=== PATIENT | male | born 1965 | race Caucasian/White ===

== ENCOUNTER 2017-01-22 13:50 | Inpatient (IN) | payer SELFPAY ==
[~2017-01-22] VITALS: Ht 172.7 cm; Wt 59.0 kg
--- NOTE | 2017-01-22 14:26 | Emergency Room Report ---
History of Present Illness General Chief Complaint: Flu Like Symptoms Source: Patient Present Illness HPI 51-year-old male with no sig pmhx p/w myalgias, nausea, vomiting, diarrhea since this morning Patient states that symptoms started after last night he drank a lot of alcohol , and now the swelling feeling very miserable Pt reports n/v, 4 episodes of nbnb vomiting, 4 episodes of watery non bloody diarrhea No fever,+ chills No recent travel no recent antibiotic use Allergies: Coded Allergies: PENICILLINS (Verified Allergy, Intermediate, 01/22/17) Patient History Past Medical History: see triage record Past Surgical History: none Pertinent Family History: none Reviewed Nursing Documentation: PMH: Agreed, PSxH: Agreed Nursing Documentation-PMH Past Medical History: No Stated History Review of Systems All Other Systems: negative except mentioned in HPI Physical Exam Vital Signs Date Time Temp Pulse Resp B/P (MAP) Pulse Ox O2 Delivery O2 Flow Rate FiO2 01/22/17 13:50 97.9 86 18 130/80 98 Room Air Sp02 EP Interpretation: reviewed, normal General Appearance: alert, GCS 15, non-toxic, mild distress, other - appears tired Head: normocephalic, atraumatic Eyes: bilateral eye normal inspection, bilateral eye PERRL, bilateral eye EOMI ENT: normal ENT inspection, normal pharynx, normal voice, moist mucus membranes Neck: normal inspection, full range of motion, supple Respiratory: normal inspection, lungs clear, normal breath sounds, no respiratory distress, no retraction, no wheezing, speaking full sentences, chest symmetrical Cardiovascular #1: normal inspection, regular rate, rhythm, normal capillary refill Cardiovascular #2: 2+ radial (R), 2+ radial (L) Gastrointestinal: normal inspection, non tender, soft, non-distended, no guarding Genitourinary: no CVA tenderness Musculoskeletal: normal inspection, back normal, normal range of motion, non- tender Neurologic: normal inspection, alert, oriented x3, responsive, motor strength/ tone normal, sensory intact, normal gait, speech normal Psychiatric: normal inspection, judgement/insight normal, memory normal Skin: normal inspection, normal color, no rash, warm/dry, well hydrated, normal turgor Medical Decision Making Diagnostic Impression: Primary Impression: Nausea vomiting and diarrhea Additional Impressions: Dehydration Leukocytosis ER Course 51 -year-old male, nausea vomiting, myalgias, one-day Differential Diagnosis: Dehydration, hypovolemia, alcohol induced, Gastritis, gastroenteritis, UTI/pyelo Abdomen is soft nontender at this time, will not perform any imaging Plan: Basic labs, ua Pepcid, Zofran, pain control, IVF ER course: Patient has remained stable during ED stay. HD stable no furhter episodes of vomiting but still cannot tolerate PO states he lives alone, does not feel well enought o go home ambulates but feels dizzy/week will admit to med surg Disposition: Admitted patient to med surg D/W Dr Michele who has accepted patient for admission Please note that this Emergency Department Report was dictated using Gradeablerecycling director technology software, occasionally this can lead to erroneous entry secondary to interpretation by the dictation equipment Chest X-ray CXR: Ordered: Yes 1 view Indication: Cough EP interpretation: Yes Interpretation: No consolidation, no effusion, no PTX, no acute cardiopulmonary disease Impression: No acute disease Electronically signed by Royer Kelly MD Laboratory Tests Test 01/22/17 14:25 01/22/17 17:40 White Blood Count 19.5 K/UL (4.8-10.8) H 16.5 K/UL (4.8-10.8) H Red Blood Count 5.53 M/UL (4.70-6.10) 4.00 M/UL (4.70-6.10) L Hemoglobin 17.4 G/DL (14.2-18.0) 13.2 G/DL (14.2-18.0) L Hematocrit 53.4 % (42.0-52.0) H 38.3 % (42.0-52.0) L Mean Corpuscular Volume 97 FL (80-99) 96 FL (80-99) Mean Corpuscular Hemoglobin 31.4 PG (27.0-31.0) H 33.1 PG (27.0-31.0) H Mean Corpuscular Hemoglobin Concent 32.5 G/DL (32.0-36.0) 34.5 G/DL (32.0-36.0) Red Cell Distribution Width 10.9 % (11.6-14.8) L 10.8 % (11.6-14.8) L Platelet Count 288 K/UL (150-450) 257 K/UL (150-450) Mean Platelet Volume 6.6 FL (6.5-10.1) 6.4 FL (6.5-10.1) L Neutrophils (%) (Auto) % (45.0-75.0) % (45.0-75.0) Lymphocytes (%) (Auto) % (20.0-45.0) % (20.0-45.0) Monocytes (%) (Auto) % (1.0-10.0) % (1.0-10.0) Eosinophils (%) (Auto) % (0.0-3.0) % (0.0-3.0) Basophils (%) (Auto) % (0.0-2.0) % (0.0-2.0) Differential Total Cells Counted 100 Neutrophils % (Manual) 84 % (45-75) H Pending Lymphocytes % (Manual) 1 % (20-45) L Pending Monocytes % (Manual) 3 % (1-10) Eosinophils % (Manual) 0 % (0-3) Basophils % (Manual) 0 % (0-2) Band Neutrophils 12 % (0-8) H Platelet Estimate Adequate Pending Platelet Morphology Normal Pending Red Blood Cell Morphology Normal Sodium Level 138 MMOL/L (136-145) Potassium Level 4.1 MMOL/L (3.5-5.1) Chloride Level 102 MMOL/L (98-107) Carbon Dioxide Level 26 MMOL/L (21-32) Anion Gap 11 mmol/L (5-15) Blood Urea Nitrogen 28 mg/dL (7-18) H Creatinine 1.1 MG/DL (0.55-1.30) Estimate Glomerular Filtration Rate > 60 mL/min (>60) Glucose Level 151 MG/DL (74-106) H Calcium Level 9.7 MG/DL (8.5-10.1) Total Bilirubin 1.5 MG/DL (0.2-1.0) H Direct Bilirubin 0.2 MG/DL (0.0-0.3) Aspartate Amino Transferase (AST) 17 U/L (15-37) Alanine Aminotransferase (ALT) 26 U/L (12-78) Alkaline Phosphatase 80 U/L (46-116) Total Protein 9.2 G/DL (6.4-8.2) H Albumin 4.5 G/DL (3.4-5.0) Globulin 4.7 g/dL Albumin/Globulin Ratio 1.0 (1.0-2.7) Lipase 133 U/L (73-393) Serum Alcohol < 3 mg/dL Urine Color Pale yellow Urine Appearance Clear Urine pH 5 (4.5-8.0) Urine Specific [place] 1.015 (1.005-1.035) Urine Protein Negative (NEGATIVE) Urine Glucose (UA) Negative (NEGATIVE) Urine Ketones Negative (NEGATIVE) Urine Occult Blood Negative (NEGATIVE) Urine Nitrite Negative (NEGATIVE) Urine Bilirubin Negative (NEGATIVE) Urine Urobilinogen Normal MG/DL (0.0-1.0) Urine Leukocyte Esterase Negative (NEGATIVE) Urine Opiates Screen Negative (NEGATIVE) Urine Barbiturates Screen Negative (NEGATIVE) Phencyclidine (PCP) Screen Negative (NEGATIVE) Urine Amphetamines Screen Negative (NEGATIVE) Urine Benzodiazepines Screen Negative (NEGATIVE) Urine Cocaine Screen Positive (NEGATIVE) H Urine Marijuana (THC) Screen Negative (NEGATIVE) Last Vital Signs Date Time Temp Pulse Resp B/P (MAP) Pulse Ox O2 Delivery O2 Flow Rate FiO2 01/22/17 13:50 97.9 86 18 130/80 98 Room Air Disposition: ADMITTED INPATIENT Condition: Serious Scripts No Active Prescriptions or Reported Meds Royer Kelly M.D. Jan 22, 2017 14:26
[2017-01-22] MEDS ORDERED: Tubing IV Cassette IV ONE (14:40)
[2017-01-22 14:42] LABS: MEAN CORPUSCULAR HEMOGLOBIN 31.4 PG (27.0-31.0); MEAN CORPUSCULAR HGB CONC 32.5 G/DL (32.0-36.0); MEAN CORPUSCULAR VOLUME 97 FL (80-99); MEAN PLATELET VOLUME 6.6 FL (6.5-10.1); PLATELET COUNT 288 K/UL (150-450); RED BLOOD COUNT 5.53 M/UL (4.70-6.10); RED CELL DISTRIBUTION WIDTH 10.9 % (11.6-14.8); WHITE BLOOD COUNT 19.5 K/UL (4.8-10.8)
[2017-01-22 14:52] LABS: ANION GAP 11 mmol/L (5-15); CALCIUM 9.7 MG/DL (8.5-10.1); CARBON DIOXIDE 26 MMOL/L (21-32); CHLORIDE 102 MMOL/L (98-107); CREATININE 1.1 MG/DL (0.55-1.30); GLOMERULAR FILTRATION RATE > 60 mL/min (>60); POTASSIUM 4.1 MMOL/L (3.5-5.1); SODIUM 138 MMOL/L (136-145)
[2017-01-22 14:56] LABS: BAND NEUTROPHILS % (MANUAL) 12 % (0-8); BASOPHILS % (MANUAL) 0 % (0-2); EOSINOPHILS % (MANUAL) 0 % (0-3); LYMPHOCYTES % (MANUAL) 1 % (20-45); NEUTROPHILS % (MANUAL) 84 % (45-75); PLATELET ESTIMATE ADEQUATE; PLATELET MORPHOLOGY NORMAL; TOTAL CELLS COUNTED 100
[2017-01-22 15:03] LABS: ALANINE AMINOTRANSFERASE 26 U/L (12-78); ASPARTATE AMINO TRANSFERASE 17 U/L (15-37); LIPASE 133 U/L (73-393); TOTAL PROTEIN 9.2 G/DL (6.4-8.2)
[2017-01-22 15:08] LABS: ALCOHOL < 3 mg/dL; BILIRUBIN,DIRECT 0.2 MG/DL (0.0-0.3)
[2017-01-22] MEDS ORDERED: Acetaminophen 500mg (ES) tab ORAL ONE (16:15)
--- NOTE | 2017-01-22 16:21 | Diagnostic Imaging Report ---
Indication: Dyspnea Comparison: None A single view chest radiograph was obtained. Findings: Cardiomediastinal appearance is within normal limits for age. Pulmonary vascularity is appropriate. The diaphragmatic contour is smooth and costophrenic angles are sharp. No pleural effusions are identified. The bones are unremarkable. Impression: No acute findings
[2017-01-22 17:15] VITALS: BP 101/58
[2017-01-22 18:00] LABS: APPEARANCE,URINE CLEAR; KETONES,URINE NEGATIVE (NEGATIVE); LEUKOCYTE ESTERASE ,URINE NEGATIVE (NEGATIVE); NITRITE,URINE NEGATIVE (NEGATIVE); PH,URINE 5 (4.5-8.0); PROTEIN,URINE NEGATIVE (NEGATIVE); UROBILINOGEN,URINE NORMAL MG/DL (0.0-1.0)
[2017-01-22 19:17] LABS: MEAN CORPUSCULAR HEMOGLOBIN 33.1 PG (27.0-31.0); MEAN CORPUSCULAR HGB CONC 34.5 G/DL (32.0-36.0); MEAN CORPUSCULAR VOLUME 96 FL (80-99); MEAN PLATELET VOLUME 6.4 FL (6.5-10.1); PLATELET COUNT 257 K/UL (150-450); RED CELL DISTRIBUTION WIDTH 10.8 % (11.6-14.8); WHITE BLOOD COUNT 16.5 K/UL (4.8-10.8)
[2017-01-22 21:12] LABS: BAND NEUTROPHILS % (MANUAL) 2 % (0-8); LYMPHOCYTES % (MANUAL) 3 % (20-45); NEUTROPHILS % (MANUAL) 93 % (45-75); TOTAL CELLS COUNTED 100
[2017-01-22 21:13] LABS: BASOPHILS % (MANUAL) 0 % (0-2); EOSINOPHILS % (MANUAL) 0 % (0-3); PLATELET ESTIMATE ADEQUATE; PLATELET MORPHOLOGY NORMAL
[2017-01-22] MEDS ORDERED: Morphine Sulfate 4mg/ml Inj IVP PRN (22:00)
[2017-01-22] MEDS ORDERED: Zolpidem 5mg tab ORAL PRN (22:00)
[2017-01-22] MEDS ORDERED: Milk of Magnesia 30ml Ud ORAL PRN (22:00)
[2017-01-22] MEDS ORDERED: cefTRIAXone 1 GM in D5W 55 ML IVPB ONE (22:45)
[2017-01-22 23:22] VITALS: BP 110/66
[2017-01-23] VITALS (7 sets, daily range): BP systolic 91–118; BP diastolic 54–71
[2017-01-23] MEDS: Pantoprazole Inj IV SCH (08:39)
[2017-01-23 08:55] LABS: BASOPHILS % (AUTO) 0.5 % (0.0-2.0); EOSINOPHILS % (AUTO) 0.9 % (0.0-3.0); LYMPHOCYTES % (AUTO) 15.5 % (20.0-45.0); MEAN CORPUSCULAR HEMOGLOBIN 31.8 PG (27.0-31.0); MEAN CORPUSCULAR HGB CONC 32.6 G/DL (32.0-36.0); MEAN CORPUSCULAR VOLUME 97 FL (80-99); MEAN PLATELET VOLUME 6.8 FL (6.5-10.1); NEUTROPHILS % (AUTO) 77.2 % (45.0-75.0); PLATELET COUNT 229 K/UL (150-450); RED BLOOD COUNT 4.06 M/UL (4.70-6.10); RED CELL DISTRIBUTION WIDTH 11.2 % (11.6-14.8); WHITE BLOOD COUNT 5.1 K/UL (4.8-10.8)
[2017-01-23 09:05] LABS: ALANINE AMINOTRANSFERASE 18 U/L (12-78); ALBUMIN/GLOBULIN RATIO 0.9 (1.0-2.7); ANION GAP 5 mmol/L (5-15); ASPARTATE AMINO TRANSFERASE 13 U/L (15-37); CALCIUM 7.8 MG/DL (8.5-10.1); CARBON DIOXIDE 27 MMOL/L (21-32); CHLORIDE 109 MMOL/L (98-107); GLOMERULAR FILTRATION RATE > 60 mL/min (>60); POTASSIUM 3.9 MMOL/L (3.5-5.1); SODIUM 141 MMOL/L (136-145); TOTAL PROTEIN 6.1 G/DL (6.4-8.2)
--- NOTE | 2017-01-23 09:29 | History & Physical ---
History and Physical History & Physicial HP dictated # [id number] LUCY CASILLAS Jan 23, 2017 09:29
--- NOTE | 2017-01-23 20:45 | History and Physical Report ---
DATE OF ADMISSION: 01/22/2017 CHIEF COMPLAINT: Dizziness, nausea, and vomiting. HISTORY OF PRESENT ILLNESS: This is a 51-year-old white male, who had four shots of Mark Vigil on Sunday night. He also took some cocaine and he went to sleep around 3 o'clock and later he woke up with severe nausea and vomiting and unrelenting diarrhea. The patient had dizziness as well. The patient was brought in by 911 and was admitted. PAST MEDICAL HISTORY: Noncontributory. No history of diabetes or hypertension. No history of GI issues in the past, although the patient had one episode of admission for abdominal pain. ALLERGIES: Penicillin. SOCIAL HISTORY: The patient has history of smoking. He drinks alcohol occasionally. REVIEW OF SYSTEMS: As above. PHYSICAL EXAMINATION: GENERAL: The patient is a 51-year-old male, in no acute distress. VITAL SIGNS: Blood pressure is 100/62, pulse 78, temperature 97.8 degrees, and respirations 18. HEENT: Sandy conjunctivae. Anicteric sclerae. NECK: Supple. LUNGS: Clear to auscultation. HEART: S1 and S2 without murmurs or rubs. ABDOMEN: Soft and nontender. EXTREMITIES: No cyanosis or edema. LABORATORY AND DIAGNOSTIC FINDINGS: Initial WBC was 19,500, today WBC is down to 5100; hematocrit is 39.6; hemoglobin is 12.9; and platelets are 229,000. Chemistry panel shows serum sodium 141, potassium 3.9, chloride 109, BUN 20, creatinine 1, and glucose 109. Calcium is 7.8. Albumin is 2.9. Chest x-ray was negative. ASSESSMENT: This is a 51-year-old white male, who was admitted with nausea, vomiting, and diarrhea. It may be as a result of alcohol consumption and the acute gastritis; however, the patient could have acute viral gastroenteritis as well. He had also leukocytosis. Again, it is not clear if it is a bacterial infection. Since there was a rapid drop, it may be stress-induced. PLAN: The patient will be on liquid diet, antiemetics, and IV fluids. An abdominal ultrasound will be done. Further adjustment will be made in the patient's regimen. Duane Michele M.D. DR: SASKIA JOB#: [id number] CC: ROYAL
[2017-01-24 00:20] VITALS: BP 121/68
[2017-01-24 04:46] VITALS: BP 111/73
[2017-01-24 08:21] VITALS: BP 122/81
[2017-01-24] MEDS: Pantoprazole Inj IV SCH (08:53)
--- NOTE | 2017-01-24 11:29 | Diagnostic Imaging Report ---
Indication: Reason For Exam: VOMITING Technique: Pressley-scale and duplex images of the upper abdomen were obtained Comparison: none Findings: Gallbladder is unremarkable, without stones, wall thickening, nor pericholecystic fluid. Sonographic Benjamin's sign is negative. Common bile duct measures for mm in diameter. No intrahepatic biliary ductal dilatation. Liver demonstrates normal echogenicity, no focal abnormality. Portal vein and hepatic veins are patent. Pancreas is unremarkable. Spleen is unremarkable. Left kidney measures 12 cm in length. Right kidney measures 11.7 cm length. Both kidneys demonstrate normal echogenicity. There is no hydronephrosis. A 1 cm cyst is seen in the interpolar region of the left kidney there are questionably small renal calcifications bilaterally. 7 mm cyst is seen in the lower pole of the right kidney . Non-aneurysmal abdominal aorta . Impression: Possible nonobstructive bilateral intrarenal calculi Incidental findings small bilateral renal cysts No other significant abnormality. Negative for gallstones or dilated ducts
[2017-01-24 12:00] VITALS: BP 127/82
--- NOTE | 2017-01-24 12:10 | General Progress Note ---
Assessment/Plan Problem List: (1) Acute gastroenteritis ICD Codes: K52.9 - Noninfective gastroenteritis and colitis, unspecified SNOMED: 34570287 (2) Leukocytosis ICD Codes: D72.829 - Elevated white blood cell count, unspecified SNOMED: 056559186, 947597409 (3) Nausea vomiting and diarrhea ICD Codes: R11.2 - Nausea with vomiting, unspecified; R19.7 - Diarrhea, unspecified SNOMED: 4291205 (4) Dehydration ICD Codes: E86.0 - Dehydration SNOMED: 45766781 Assessment/Plan IVF advance diet DC in AM if stable Subjective Allergies: Coded Allergies: PENICILLINS (Verified Allergy, Intermediate, 01/22/17) Subjective feels better Objective Last 24 Hour Vital Signs Date Time Temp Pulse Resp B/P (MAP) Pulse Ox O2 Delivery O2 Flow Rate FiO2 01/24/17 12:00 98.6 83 20 127/82 97 01/24/17 08:21 98.8 78 20 122/81 95 01/24/17 08:00 Room Air 01/24/17 06:00 Room Air 01/24/17 04:46 98.1 85 19 111/73 97 01/24/17 00:20 98.2 71 18 121/68 97 01/23/17 21:06 98.3 77 19 118/71 98 01/23/17 16:00 97.8 70 20 110/62 99 Room Air Height (Feet): 5 Height (Inches): 8.00 Weight (Pounds): 130 Cardiovascular: normal rate Respiratory/Chest: lungs clear Abdomen: soft LUCY CASILLAS Jan 24, 2017 12:10
[2017-01-24 20:00] VITALS: BP 110/70
[2017-01-25] VITALS: BP 106/66
[2017-01-25 04:00] VITALS: BP 107/77
[2017-01-25 08:00] VITALS: BP 116/70
[2017-01-25] MEDS: Pantoprazole Inj IV SCH (08:38)
[2017-01-25 12:00] VITALS: BP 113/79
[2017-01-25 16:00] VITALS: BP 115/57
--- NOTE | 2017-01-26 08:19 | Discharge Summary ---
Discharge Summary Hospital Course Date of Admission Jan 22, 2017 at 19:23 Date of Discharge Jan 25, 2017 at 19:00 Admitting Diagnosis dehydration/inability to tolerate po HPI Rocco Lopez is a 51 year old male who was admitted on Jan 22, 2017 at 19:23 for Dehydration Inability To Tolerate Po Hospital Course [id number] Discharge Discharge Disposition Patient was discharged to Home (01) Discharge Diagnoses: Terri Sauceda NP Jan 26, 2017 08:19
--- NOTE | 2017-01-26 23:30 | Discharge Summary 2 SIG ---
DATE OF ADMISSION: 01/22/2017 DATE OF DISCHARGE: 01/25/2017 BRIEF HOSPITAL COURSE: The patient is a 51-year-old white male, who took Mark Vigil and took cocaine, went to sleep. He then woke up with severe nausea and vomiting and unrelenting diarrhea. He had dizziness. He was then brought in by 911 to emergency room and on evaluation, the patient was admitted for nausea, vomiting, and diarrhea as a result of alcohol consumption and acute gastritis as well as possible viral gastroenteritis. There was leukocytosis, WBC was 19.5. He was placed initially on liquid diet and was given IV hydration and antiemetics. Abdominal ultrasound done showed positive nonobstructing bilateral intrarenal calculi. However, no other significant abnormality. Negative for gallstones or dilated ducts. Social service was called in. Diet was advanced. He was tolerating diet. He was then eventually discharged home. FINAL DIAGNOSES: 1. Acute gastroenteritis. 2. Leukocytosis. 3. Nausea, vomiting, and diarrhea. 4. Dehydration. 5. Substance abuse. DISPOSITION: The patient was discharged home. DISCHARGE INSTRUCTIONS: The patient to follow up with outpatient MD. Duane Michele M.D. I have been assigned to dictate discharge summary on this account and I was not involved in the patient's management. Terri Sauceda N.P. DR: Julio JOB#: [id number] CC: ROYAL
== END 2017-01-25 19:00 | disposition home or self-care (01) | DRG 641 ==
LOC: EDBD 13:50 → EMR 14:30 → 3E 19:23 → EDBEDREQ 20:40
DX: E86.0 Dehydration (principal); K52.9 Noninfective gastroenteritis and colitis, unspecified; N20.0 Calculus of kidney; Z88.0 Allergy status to penicillin; Z87.891 Personal history of nicotine dependence
CPT/HCPCS: 36415; 71010; 76700; 80053; 80307; 80329; 81003; 82248; 83690; 85007; 85025; 87081; 99285; J2405

== ENCOUNTER 2017-02-02 17:41 | Emergency (ER) | payer SELFPAY ==
[~2017-02-02] VITALS: Ht 177.8 cm; Wt 77.1 kg
--- NOTE | 2017-02-02 19:05 | Emergency Room Report ---
History of Present Illness General Chief Complaint: Flu Like Symptoms Present Illness HPI 51-year-old male presents to the emergency department complaining of cough, body aches, chills and subjective fevers x2 days. Patient states that he was diagnosed with viral gastroenteritis earlier this month. Patient denies nausea , vomiting, diarrhea with his current presentation. Patient reports multiple ill contacts in is very descriptive in detailing poor living conditions where he is exposed to feces. reports that he does not know if he is UTD with flu vaccine. otherwise UTD with vaccinations. Patient states that he has taken Tylenol approximately 20 minutes ago. He denies rashes, neck pain, neck stiffness or photophobia. Patient denies drug use. denies SOB or dyspnea. Denies CP, Palpitations, LOC, AMS, dizziness, Changes in Vision, Sensation, paresthesias, or a sudden severe headache. Pt reports that he has not followed up with PCP since last ED visit. Allergies: Coded Allergies: PENICILLINS (Verified Allergy, Intermediate, 01/22/17) Patient History Past Medical History: see triage record Past Surgical History: none Pertinent Family History: none Reviewed Nursing Documentation: PMH: Agreed, PSxH: Agreed Nursing Documentation-PMH Hx Cardiac Problems: No Review of Systems All Other Systems: negative except mentioned in HPI Physical Exam Vital Signs Date Time Temp Pulse Resp B/P (MAP) Pulse Ox O2 Delivery O2 Flow Rate FiO2 02/02/17 17:42 97.5 110 20 138/82 99 Room Air Sp02 EP Interpretation: reviewed, normal General Appearance: no apparent distress, alert, GCS 15, non-toxic Head: normocephalic, atraumatic Eyes: bilateral eye normal inspection, bilateral eye PERRL ENT: hearing grossly normal, normal pharynx, no angioedema, normal voice, TMs + canals normal, uvula midline Neck: full range of motion, no meningismus, no bony tend, supple/symm/no masses Respiratory: lungs clear, normal breath sounds, no wheezing, speaking full sentences Cardiovascular #1: regular rate, rhythm, tachycardia Gastrointestinal: non tender, soft Rectal: deferred Musculoskeletal: back normal, gait/station normal, normal range of motion, non- tender Neurologic: alert, oriented x3, responsive, motor strength/tone normal, sensory intact, normal gait, speech normal Psychiatric: anxious Skin: normal color, no rash, warm/dry, well hydrated Lymphatic: no adenopathy Medical Decision Making PA Attestation Dr. Toscano is my supervising Physician whom patient management has been discussed with. Diagnostic Impression: Primary Impression: Viral syndrome Additional Impression: Upper respiratory infection, viral ER Course 51-year-old male presents to the emergency department complaining of cough, body aches, chills and subjective fevers x2 days. Patient states that he was diagnosed with viral gastroenteritis earlier this month. Patient denies nausea , vomiting, diarrhea with his current presentation. Patient reports multiple ill contacts in is very descriptive in detailing poor living conditions where he is exposed to feces. reports that he does not know if he is UTD with flu vaccine. otherwise UTD with vaccinations. Patient states that he has taken Tylenol approximately 20 minutes ago. He denies rashes, neck pain, neck stiffness or photophobia. Patient denies drug use. denies SOB or dyspnea. Denies CP, Palpitations, LOC, AMS, dizziness, Changes in Vision, Sensation, paresthesias, or a sudden severe headache. Pt reports that he has not followed up with PCP since last ED visit. Ddx considered but are not limited to URI, pneumonia, PE, strep pharyngitis, meningitis. Vital signs: tachycardic at 110 bpm, Pt. is afebrile, the remaining VS are WNL, He is nontoxic in appearance and in no acute distress. H&PE are most consistent with URI- no meningeal signs, no evidence of bacterial infection at this time. suspect drug use due to pt. anxious demeanor, overly descriptive verbal responses, and tachycardia - I reviewed this patient's previous visit earlier this month and UDS was positive for cocaine. ORDERS: none required at this time, the diagnosis is clinical ED INTERVENTIONS: None required at this time. --PT. EDUCATION: Discussed antibiotic resistance with inappropriate prescribing of antibiotics for viral illnesses. Discussed signs and symptoms to indicate viral illness versus bacterial illness. DISCHARGE: At this time pt. is stable for d/c to home. Will provide printed patient care instructions, and any necessary prescriptions. Care plan and follow up instructions have been discussed with the patient prior to discharge. Last Vital Signs Date Time Temp Pulse Resp B/P (MAP) Pulse Ox O2 Delivery O2 Flow Rate FiO2 02/02/17 17:42 97.5 110 20 138/82 99 Room Air Disposition: HOME, SELF-CARE Condition: Stable Scripts Acetaminophen* (TYLENOL EXTRA STRENGTH*) 500 Mg Tablet 500 MG ORAL Q6H, #20 TAB 0 Refills Prov: Marlene Rosen 02/02/17 Oseltamivir Phosphate (Tamiflu) 75 Mg Capsule 75 MG ORAL TWICE A DAY for 5 Days, #10 CAP Prov: Marlene Rosen 02/02/17 Codeine/Promethazine Hcl* (PROMETHAZINE-CODEINE SYRUP*) 118 Ml Syrup 5 ML ORAL Q6H Y for For Cough, #118 ML 0 Refills Prov: Marlene Rosen 02/02/17 Patient Instructions: Upper Respiratory Infection, Adult, [id number] Additional Instructions: Take medications as directed. Follow up with a Primary Care Provider in 3-5 days, even if your symptoms have resolved. --Please review list of primary care clinics, if you do not already have a primary care provider Do not drink alcohol, drive, or operate heavy machinery while taking Cough Syrup as this may cause drowsiness. Return sooner to ED if new symptoms occur, or current symptoms become worse. - Please note that this Emergency Department Report was dictated using Knovulcan crewmember technology software, occasionally this can lead to erroneous entry secondary to interpretation by the dictation equipment. Marlene Rosen Feb 02, 2017 19:05
[2017-02-02] MEDS ORDERED: PROMETHAZINE-C118 M1 ORAL (19:06)
[2017-02-02] MEDS ORDERED: TYLENOL EXTRA500 MG ORAL (19:06)
[2017-02-02] MEDS ORDERED: TAMIFLU75 MG ORAL (19:06)
[2017-02-02 19:50] VITALS: BP 138/82
== END 2017-02-02 19:50 | disposition home or self-care (01) ==
LOC: EDBD 17:41 → EMR 18:30
DX: B34.9 Viral infection, unspecified (principal); J06.9 Acute upper respiratory infection, unspecified; Z88.0 Allergy status to penicillin
CPT/HCPCS: 99284

== ENCOUNTER 2017-08-27 21:08 | Emergency (ER) | payer MEDICAID ==
[~2017-08-27] VITALS: Ht 175.3 cm; Wt 76.2 kg
[~2017-08-27 21:08] MED LIST: PROMETHAZINE-C118 M1 ORAL; TAMIFLU75 MG ORAL; TYLENOL EXTRA500 MG ORAL
[2017-08-27] MEDS ORDERED: NKM (21:14)
[2017-08-27 21:15] VITALS: BP 110/73
[2017-08-27] MEDS ORDERED: PREDNISONE20 MG ORAL (21:26)
[2017-08-27] MEDS ORDERED: PERMETHRIN60 GM TOPIC (21:26)
[2017-08-27] MEDS ORDERED: CEPHALEXIN500 MG ORAL (21:26)
--- NOTE | 2017-08-27 21:31 | Emergency Room Report ---
History of Present Illness General Chief Complaint: General Complaint Source: Patient Present Illness HPI Patient reports that for the past 2 months he has been having skin lesions He reports that he is living in a transitional facility and feels that he has been getting bit by insects There are several areas that have become more red Including the left lower leg In the right marie patient otherwise has area as of redness and rash diffusely both upper arms back area The areas are puritic in nature Denies any fevers denies any chest pain Denies any vomiting or diarrhea Allergies: Coded Allergies: PENICILLINS (Verified Allergy, Intermediate, 01/22/17) Patient History Past Medical History: see triage record Pertinent Family History: none Reviewed Nursing Documentation: PMH: Agreed; PSxH: Agreed Nursing Documentation-PMH Hx Cardiac Problems: No History Of Psychiatric Problem: Yes - major depressive disorder Review of Systems All Other Systems: negative except mentioned in HPI Physical Exam Vital Signs Date Time Temp Pulse Resp B/P (MAP) Pulse Ox O2 Delivery O2 Flow Rate FiO2 08/27/17 21:10 97.7 74 14 106/73 96 Room Air 97.7 Sp02 EP Interpretation: reviewed, normal General Appearance: no apparent distress Head: normocephalic, atraumatic Eyes: bilateral eye PERRL, bilateral eye EOMI ENT: hearing grossly normal, normal pharynx Neck: supple, thyroid normal Respiratory: lungs clear Cardiovascular #1: regular rate, rhythm Gastrointestinal: non tender, soft Musculoskeletal: normal inspection Neurologic: alert, oriented x3, responsive, boom storage III-XII nml as tested Psychiatric: normal inspection Skin: other - Multiple areas of rash specific area over the left dorsal foot right anterior tibial area, with increased erythema concerning for early cellulitis, otherwise several areas of lesions likely consistent with insect bites, also possible spider bites. Involves diffusely the upper back lower extremity and chest area, Lymphatic: no adenopathy Medical Decision Making Diagnostic Impression: Primary Impression: insect bites Additional Impression: cellulitis ER Course Patient's presentation is consistent with audible insect bites Consideration for scabies is also made however there is not a linear scab formation to fully indicate this there are 2 areas that appear to be likely Getting infected patient placed on oral medication and requires close outpatient follow-up Last Vital Signs Date Time Temp Pulse Resp B/P (MAP) Pulse Ox O2 Delivery O2 Flow Rate FiO2 08/27/17 21:10 97.7 74 14 106/73 96 Room Air 97.7 Status: unchanged Disposition: HOME, SELF-CARE Condition: Stable Scripts Permethrin* (ELIMITE*) 60 Gm Cream..g. 1 APPLIC TOPIC ONCE, #60 GM 1 Refill Apply cream from head to toe; leave on for 8-14 hours before washing off with water; may reapply in 1 week if live mites appear. Prov: Ambar Toscano DO 08/27/17 Prednisone* (PREDNISONE*) 20 Mg Tablet 20 MG ORAL BID, #8 TAB Prov: Ambar Toscano DO 08/27/17 Cephalexin* (KEFLEX*) 500 Mg Capsule 500 MG ORAL EVERY 6 HOURS for 7 Days, CAP Prov: Ambar Toscano DO 08/27/17 Patient Instructions: Cellulitis, [id number], Insect Bite, [id number] Additional Instructions: Patient is provided with the discharge instructions notified to follow up with primary doctor in the next 2-3 days otherwise return to the er with any worsening symptoms. Please note that this report is being documented using Satellier technology. This can lead to erroneous entry secondary to incorrect interpretation by the dictating instrument. Ambar Toscano DO Aug 27, 2017 21:31
[2017-08-27 21:50] VITALS: BP 110/73
== END 2017-08-27 21:50 | disposition home or self-care (01) ==
LOC: EMR 21:25
DX: S80.862A Insect bite (nonvenomous), left lower leg, initial encounter (principal); S40.862A Insect bite (nonvenomous) of left upper arm, initial encounter; S40.861A Insect bite (nonvenomous) of right upper arm, initial encounter; S30.860A Insect bite (nonvenomous) of lower back and pelvis, initial encounter; S20.369A Insect bite (nonvenomous) of unspecified front wall of thorax, initial encounter; W57.XXXA Bitten or stung by nonvenomous insect and other nonvenomous arthropods, initial encounter; L03.90 Cellulitis, unspecified; F32.9 Major depressive disorder, single episode, unspecified; Z88.0 Allergy status to penicillin
CPT/HCPCS: 99283

== ENCOUNTER 2017-08-29 21:15 | Emergency (ER) | payer MEDICAID ==
[~2017-08-29] VITALS: Ht 175.3 cm; Wt 74.8 kg
[~2017-08-29 21:15] MED LIST changes: +CEPHALEXIN500 MG ORAL; +NKM; +PERMETHRIN60 GM TOPIC; +PREDNISONE20 MG ORAL
[2017-08-29 21:35] VITALS: BP 122/78
[2017-08-29] MEDS ORDERED: CEPHALEXIN500 MG ORAL (21:41)
[2017-08-29] MEDS ORDERED: PREDNISONE20 MG ORAL (21:41)
[2017-08-29] MEDS ORDERED: PERMETHRIN60 GM TOPIC (21:41)
[2017-08-29] MEDS ORDERED: Cephalexin 500mg cap ORAL ONE (21:45)
[2017-08-29 21:52] VITALS: BP 122/78
--- NOTE | 2017-08-29 23:34 | Emergency Room Report ---
History of Present Illness General Chief Complaint: Skin Rash/Abscess Source: Patient Present Illness HPI 51-year-old male presents ED for evaluation of insect bites to his legs. States he was here 2 days ago for same presentation. Was subsequently discharged on antibiotics and Elimite. States that he was not able to fill the prescriptions because he does not have money. Lives in transitional housing. States it is itchy. Denies fevers or chills. Denies any discharge. No other aggravating relieving factors. Denies any other associated symptoms Allergies: Coded Allergies: PENICILLINS (Verified Allergy, Intermediate, 01/22/17) Patient History Past Medical History: none Past Surgical History: none Pertinent Family History: none Social History: Denies: smoking, alcohol use, drug use Immunizations: UTD Reviewed Nursing Documentation: PMH: Agreed; PSxH: Agreed Nursing Documentation-PMH Past Medical History: No Stated History Hx Cardiac Problems: No Review of Systems All Other Systems: negative except mentioned in HPI Physical Exam Vital Signs Date Time Temp Pulse Resp B/P (MAP) Pulse Ox O2 Delivery O2 Flow Rate FiO2 08/29/17 21:15 97.8 73 16 122/78 96 Room Air 97.9 Sp02 EP Interpretation: reviewed, normal General Appearance: no apparent distress, alert, GCS 15, non-toxic Head: normocephalic Eyes: bilateral eye normal inspection, bilateral eye PERRL ENT: normal ENT inspection Neck: normal inspection Respiratory: normal inspection Cardiovascular #1: normal inspection Gastrointestinal: normal inspection Rectal: deferred Genitourinary: no CVA tenderness Musculoskeletal: normal inspection Neurologic: alert, oriented x3, responsive, motor strength/tone normal, sensory intact, speech normal Psychiatric: normal inspection Skin: rash - multiple insect bites to bilateral lower extremities. surrounding areas of erythema. no induration. no discharge. no fluctuance Lymphatic: normal inspection Medical Decision Making Diagnostic Impression: Primary Impression: Insect bites Qualified Codes: W57.XXXD - Bitten or stung by nonvenomous insect and other nonvenomous arthropods, subsequent encounter ER Course Hospital Course 51-year-old male presents to ED with insect bites to lower extremitiies Differential diagnoses include: Cellulitis, dermatitis, insect bite, abscess Clinical course Patient placed on stretcher. After initial history, physical exam reveals a male in no acute distress. On exam there are multiple insect bites to the lower extremities. There is no fluctuance. There is no tenderness. patient is afebrile, nontoxic appearing. stable vitals I discussed findings with the patient. Agreed that patient is safe for discharge. Patient is asking how he can pay for his medications. Registration verified that patient does have insurance which will help pay for his medications. I gave him a dose of medication here prior to discharge. Provided him with reprint of his prescriptions Diagnosis - insect bites stable and discharged to home with prescription for keflex, elimite, prednisone. Instructed to followup with PMD. Instructed return to ED if symptoms recur or worsen Last Vital Signs Date Time Temp Pulse Resp B/P (MAP) Pulse Ox O2 Delivery O2 Flow Rate FiO2 08/29/17 21:52 97.9 73 16 122/78 96 Room Air 97.9 Status: improved Disposition: HOME, SELF-CARE Condition: Stable Scripts Permethrin* (ELIMITE*) 60 Gm Cream..g. 1 APPLIC TOPIC ONCE, #60 GM 1 Refill Apply cream from head to toe; leave on for 8-14 hours before washing off with water; may reapply in 1 week if live mites appear. Prov: David Miguel MD 08/29/17 Prednisone* (PREDNISONE*) 20 Mg Tablet 20 MG ORAL BID, #8 TAB Prov: David Miguel MD 08/29/17 Cephalexin* (KEFLEX*) 500 Mg Capsule 500 MG ORAL EVERY 6 HOURS for 7 Days, CAP Prov: David Miguel MD 08/29/17 Patient Instructions: Insect Bite, [id number] David Miguel MD Aug 29, 2017 23:34
== END 2017-08-29 21:54 | disposition home or self-care (01) ==
LOC: EMR 21:32
DX: S80.862A Insect bite (nonvenomous), left lower leg, initial encounter (principal); S80.861A Insect bite (nonvenomous), right lower leg, initial encounter; W57.XXXA Bitten or stung by nonvenomous insect and other nonvenomous arthropods, initial encounter; Y92.9 Unspecified place or not applicable; R21 Rash and other nonspecific skin eruption; Z88.0 Allergy status to penicillin
CPT/HCPCS: 99284

== ENCOUNTER 2017-09-09 11:13 | Emergency (ER) | payer MEDICAID ==
[~2017-09-09] VITALS: Ht 172.7 cm; Wt 77.1 kg
[2017-09-09 11:45] LABS: BASOPHILS % (AUTO) 0.8 % (0.0-2.0); EOSINOPHILS % (AUTO) 0.6 % (0.0-3.0); HEMATOCRIT 41.6 % (42.0-52.0); HEMOGLOBIN 13.9 G/DL (14.2-18.0); LYMPHOCYTES % (AUTO) 11.8 % (20.0-45.0); MEAN CORPUSCULAR VOLUME 92 FL (80-99); MONOCYTES % (AUTO) 4.2 % (1.0-10.0); NEUTROPHILS % (AUTO) 82.7 % (45.0-75.0); PLATELET COUNT 281 K/UL (150-450); RED BLOOD COUNT 4.54 M/UL (4.70-6.10); RED CELL DISTRIBUTION WIDTH 10.2 % (11.6-14.8)
[2017-09-09 11:57] LABS: ANION GAP 10 mmol/L (5-15); BLOOD UREA NITROGEN 20 mg/dL (7-18); CALCIUM 9.6 MG/DL (8.5-10.1); CARBON DIOXIDE 30 MMOL/L (21-32); CHLORIDE 104 MMOL/L (98-107); CREATININE 1.1 MG/DL (0.55-1.30); POTASSIUM 3.6 MMOL/L (3.5-5.1); SODIUM 143 MMOL/L (136-145)
[2017-09-09 12:01] LABS: ALANINE AMINOTRANSFERASE 21 U/L (12-78); ALBUMIN 3.9 G/DL (3.4-5.0); ALKALINE PHOSPHATASE 68 U/L (46-116); ASPARTATE AMINO TRANSFERASE 14 U/L (15-37); BILIRUBIN,TOTAL 0.7 MG/DL (0.2-1.0)
--- NOTE | 2017-09-09 12:33 | Emergency Room Report ---
History of Present Illness General Chief Complaint: Abdominal Pain Source: Patient Present Illness HPI Patient presents with reports of vomiting and diarrhea Started yesterday patient reports that he thinks he ate something bad he has pain to the mid abdominal region as well Denies any fevers or chills Denies any back or flank pain denies any dysuria or frequency Patient has had 2 recent visits with reports of bug bites and cellulitis Patient has not been able to get his medications filled Allergies: Coded Allergies: PENICILLINS (Verified Allergy, Intermediate, 01/22/17) Patient History Past Medical History: see triage record Pertinent Family History: none Reviewed Nursing Documentation: PMH: Agreed; PSxH: Agreed Nursing Documentation-PMH Past Medical History: No Stated History Hx Cardiac Problems: No Review of Systems All Other Systems: negative except mentioned in HPI Physical Exam Vital Signs Date Time Temp Pulse Resp B/P (MAP) Pulse Ox O2 Delivery O2 Flow Rate FiO2 09/09/17 11:03 64 18 149/84 99 Room Air Sp02 EP Interpretation: reviewed, normal General Appearance: well appearing, no apparent distress Head: normocephalic, atraumatic Eyes: bilateral eye PERRL, bilateral eye EOMI ENT: hearing grossly normal, normal pharynx, TMs + canals normal, uvula midline Neck: full range of motion, supple, no meningismus, no bony tend Respiratory: lungs clear, normal breath sounds, no rhonchi, no respiratory distress, no retraction, no accessory muscle use Cardiovascular #1: normal peripheral pulses, regular rate, rhythm, no edema, no gallop, no JVD, no murmur Gastrointestinal: normal bowel sounds, non tender, soft, no mass, no organomegaly, non-distended, no guarding, no hernia, no pulsatile mass, no rebound Genitourinary: no CVA tenderness Musculoskeletal: normal inspection Neurologic: oriented x3, responsive, public improvement inspector III-XII nml as tested, motor strength/ tone normal, sensory intact Psychiatric: mood/affect normal Skin: normal color, no rash, warm/dry, palpation normal Lymphatic: normal inspection, no adenopathy Medical Decision Making Diagnostic Impression: Primary Impression: Vomiting Additional Impression: Abdominal pain ER Course With the history exam and presentation, multiple differentials considered, including but not limited to appendicitis, gastritis, cholecystitis, diverticulitis Patient's white blood cell count is mildly elevated Patient is on steroids for the itching and erythema of the lower legs However with the elevated white count CT was obtained shows findings consistent with enteritis and colitis Patient does not show any signs of bowel obstruction At this time patient further hydrated orally has done significantly better with medication and is stable for close outpatient follow-up Labs Test 09/09/17 11:33 09/09/17 14:14 White Blood Count 16.0 K/UL (4.8-10.8) Red Blood Count 4.54 M/UL (4.70-6.10) Hemoglobin 13.9 G/DL (14.2-18.0) Hematocrit 41.6 % (42.0-52.0) Mean Corpuscular Volume 92 FL (80-99) Mean Corpuscular Hemoglobin 30.6 PG (27.0-31.0) Mean Corpuscular Hemoglobin Concent 33.4 G/DL (32.0-36.0) Red Cell Distribution Width 10.2 % (11.6-14.8) Platelet Count 281 K/UL (150-450) Mean Platelet Volume 6.7 FL (6.5-10.1) Neutrophils (%) (Auto) 82.7 % (45.0-75.0) Lymphocytes (%) (Auto) 11.8 % (20.0-45.0) Monocytes (%) (Auto) 4.2 % (1.0-10.0) Eosinophils (%) (Auto) 0.6 % (0.0-3.0) Basophils (%) (Auto) 0.8 % (0.0-2.0) Sodium Level 143 MMOL/L (136-145) Potassium Level 3.6 MMOL/L (3.5-5.1) Chloride Level 104 MMOL/L (98-107) Carbon Dioxide Level 30 MMOL/L (21-32) Anion Gap 10 mmol/L (5-15) Blood Urea Nitrogen 20 mg/dL (7-18) Creatinine 1.1 MG/DL (0.55-1.30) Estimat Glomerular Filtration Rate > 60 mL/min (>60) Glucose Level 131 MG/DL (74-106) Calcium Level 9.6 MG/DL (8.5-10.1) Total Bilirubin 0.7 MG/DL (0.2-1.0) Aspartate Amino Transf (AST/SGOT) 14 U/L (15-37) Alanine Aminotransferase (ALT/SGPT) 21 U/L (12-78) Alkaline Phosphatase 68 U/L (46-116) Total Protein 7.9 G/DL (6.4-8.2) Albumin 3.9 G/DL (3.4-5.0) Globulin 4.0 g/dL Albumin/Globulin Ratio 1.0 (1.0-2.7) Lipase 94 U/L (73-393) Urine Color Yellow Urine Appearance Slightly cloudy Urine pH 5 (4.5-8.0) Urine Specific [place] 1.025 (1.005-1.035) Urine Protein 1+ (NEGATIVE) Urine Glucose (UA) Negative (NEGATIVE) Urine Ketones Negative (NEGATIVE) Urine Occult Blood Negative (NEGATIVE) Urine Nitrite Negative (NEGATIVE) Urine Bilirubin Negative (NEGATIVE) Urine Urobilinogen 1 MG/DL (0.0-1.0) Urine Leukocyte Esterase 1+ (NEGATIVE) Urine RBC 0 /HPF (0 - 0) Urine WBC 0-2 /HPF (0 - 0) Urine Squamous Epithelial Cells Occasional /LPF Urine Amorphous Sediment Moderate /LPF (NONE) Urine Bacteria Occasional /HPF (NONE) Urine Mucus Few /LPF (NONE/OCC) CT/MRI/US Diagnostic Results CT/MRI/US Diagnostic Results : Impression CT abdomen pelvisFluid distended thickened small bowel loops maybe enteritiswith ileus versus low-grade SBO. Possible transition in the distal ileum. Trace free fluid. No free air or abscess. No pneumatosis. Moderate stool in colon maybe constipation. No obstructive uropathy. Mild bilateral perinephric stranding maybe senescent, correlate for infection. Mild stranding of the urinarybladder wall. Small hiatal hernia. Thickening of the distal esophagus. Distended gallbladder. Mild bibasilar lung atelectasis. Small bilateral fat-containing inguinal hernias. Last Vital Signs Date Time Temp Pulse Resp B/P (MAP) Pulse Ox O2 Delivery O2 Flow Rate FiO2 09/09/17 11:03 64 18 149/84 99 Room Air Status: improved Disposition: HOME, SELF-CARE Condition: Improved Scripts Famotidine (PEPCID AC) 20 Mg Tablet 20 MG PO DAILY, #7 TAB Prov: Ambar Toscano DO 09/09/17 Ondansetron (Zofran) 4 Mg Tablet 4 MG ORAL Q6H PRN for Nausea & Vomiting, #12 TAB Prov: Ambar Toscano DO 09/09/17 Referrals: Ida SOMMER,REFERRING (PCP) Additional Instructions: Patient is provided with the discharge instructions notified to follow up with primary doctor in the next 2-3 days otherwise return to the er with any worsening symptoms. Please note that this report is being documented using DRAGON technology. This can lead to erroneous entry secondary to incorrect interpretation by the dictating instrument. Ambar Toscano DO Sep 09, 2017 12:33
[2017-09-09 13:50] VITALS: BP 113/75
[2017-09-09 14:30] LABS: APPEARANCE,URINE SLIGHTLY CLOUDY; BILIRUBIN, URINE NEGATIVE (NEGATIVE); GLUCOSE, URINE (UA) NEGATIVE (NEGATIVE); KETONES,URINE NEGATIVE (NEGATIVE); LEUKOCYTE ESTERASE ,URINE 1+ (NEGATIVE); NITRITE,URINE NEGATIVE (NEGATIVE); PH,URINE 5 (4.5-8.0); PROTEIN,URINE 1+ (NEGATIVE); UROBILINOGEN,URINE 1 MG/DL (0.0-1.0)
[2017-09-09 14:46] LABS: COLOR,URINE YELLOW
[2017-09-09] MEDS ORDERED: ZOFRAN4 M1 ORAL (15:49)
[2017-09-09] MEDS ORDERED: PEPCID AC20 M2 PO (15:49)
[2017-09-09 16:05] VITALS: BP 107/64
--- NOTE | 2017-09-10 08:31 | Diagnostic Imaging Report ---
Indication: Abdominal pain Technique: Spiral acquisitions obtained through the abdomen and pelvis. No oral contrast utilized, per emergency room physician request No IV contrast utilized, per referring physician request.. Multiplanar reconstructions were generated. Total dose length product 803.85 mGycm. CTDIvol(s) 14.12 mGy. Dose reduction achieved using automated exposure control Comparison: No comparison CTs. Reference made to abdominal ultrasound dated 01/23/2017 Findings: The appendix is not definitely identified. However, no findings to suggest acute appendicitis are evident. Small bowel loops are diffusely fluid-filled and mildly dilated, particularly distally, without definite transition point. Distention extends to the terminal ileum Some of the small bowel wall is mildly thickened. There is a moderate amount of retained fecal material. No evidence of diverticulosis or diverticulitis. A small amount of free fluid is seen in Morison's pouch. No free intraperitoneal gas. Distal esophagus stomach demonstrate a sliding-type hiatal hernia. The duodenum is unremarkable. Lack of IV contrast limits assessment of the solid organs. The liver, gallbladder, bile ducts, pancreas, spleen, adrenals, kidneys are all unremarkable. No retroperitoneal or mesenteric mass or adenopathy. No pelvic mass or adenopathy. The included lung bases demonstrates some atelectatic changes. The bones demonstrate minimal degenerative proliferative changes of the spine. Impression: Mildly dilated fluid-filled small bowel loops likely represent enteritis or ileus. Distal small bowel obstruction also possible but much less likely given lack no definite transition point. Trace free intraperitoneal fluid Considerable retained feces in the colon. Correlate with any history of constipation Small hiatal hernia Incidental findings as noted, including basilar pulmonary atelectatic changes, degenerative proliferative spondylosis. This agrees with the preliminary interpretation provided overnight by [facility] service. The CT scanner at [facility] is accredited by the [employer] and the scans are performed using protocols designed to limit radiation exposure to as low as reasonably achievable to attain images of sufficient resolution adequate for diagnostic evaluation.
== END 2017-09-09 16:05 | disposition home or self-care (01) ==
LOC: EDBD 11:13 → EMR 11:57
DX: R11.10 Vomiting, unspecified (principal); R10.9 Unspecified abdominal pain; R19.7 Diarrhea, unspecified; Z88.0 Allergy status to penicillin
CPT/HCPCS: 36415; 74176; 80053; 81003; 82962; 83690; 85025; 99284

== ENCOUNTER 2017-09-20 16:10 | Emergency (ER) | payer MEDICAID ==
[~2017-09-20] VITALS: Ht 175.3 cm; Wt 75.3 kg
[~2017-09-20 16:10] MED LIST changes: +PEPCID AC20 M2 PO; +ZOFRAN4 M1 ORAL
[2017-09-20 16:25] VITALS: BP 114/70
--- NOTE | 2017-09-20 17:07 | Emergency Room Report ---
History of Present Illness General Chief Complaint: Skin Rash/Abscess Source: Patient (Darius Wright) Present Illness HPI 51-year-old male patient presents ER complaining of multiple bites on lower legs. reports extremely pruritic. Reports his previous symptoms in the ER for similar symptoms. previously treated with antibiotics and topical medications, states has used all his medications to completion. Reports has not used Elimite cream because he was "afraid of keeping it on all day". reports that he lives at a transitional housing facility with several other people. does not know if contacts have similar symptoms. denies fever, chest pain, shortness breath, vomiting, red streaking. states he believes he was bit by bugs and insects. (Darius Wright) Allergies: Coded Allergies: PENICILLINS (Verified Allergy, Intermediate, 01/22/17) Patient History Past Medical History: see triage record Reviewed Nursing Documentation: PMH: Agreed; PSxH: Agreed (Darius Wright) Nursing Documentation-PMH Past Medical History: No Stated History Hx Cardiac Problems: No (Darius Wright) Review of Systems All Other Systems: negative except mentioned in HPI (Darius Wright) Physical Exam Vital Signs Date Time Temp Pulse Resp B/P (MAP) Pulse Ox O2 Delivery O2 Flow Rate FiO2 09/20/17 16:15 98.4 69 16 114/70 96 Room Air 98.4 Sp02 EP Interpretation: reviewed, normal General Appearance: well appearing, no apparent distress, alert, GCS 15, non- toxic Head: normocephalic, atraumatic Eyes: bilateral eye normal inspection, bilateral eye PERRL Neck: full range of motion Respiratory: lungs clear, normal breath sounds, no rhonchi, no respiratory distress, no accessory muscle use, no wheezing, speaking full sentences Cardiovascular #1: regular rate, rhythm, no edema Genitourinary: no CVA tenderness Musculoskeletal: back normal, digits/nails normal, gait/station normal, normal range of motion, non-tender Neurologic: alert, oriented x3, responsive, motor strength/tone normal, sensory intact Psychiatric: mood/affect normal Skin: rash - diffuse papular erythematous rash on lower legs and upper extremities, noted on webspaces, linear burrows, no surrounding erythema or edema, no crusting, excoriations, no blisters; multiple insect bites on lower extremities, no edema, mild erythema, no discharge, no fluctuance or induration , excoriations (Darius Wright) Medical Decision Making PA Attestation Dr. Bautista is my supervising Physician whom patient management has been discussed with. (Darius Wright) Diagnostic Impression: Primary Impression: Scabies ER Course Pt. presents to the ED c/o rash. Ddx considered but are not limited to atopic dermatitis, scabies, shingles, hives, urticaria, angiodema, allergic reaction, impetigo. Vital signs: are WNL, pt. is afebrile ER COURSE: physical exam shows multiple erythematous lesions consistent with scabies. Due to patient repeatedly not applying permethrin medication, will apply in ER. Ordered permethrin, applied to the patient in the ER, instructed patient to not wash body for 12 hours. Instructed patient to repeat in one week. Instructed patient to wash all clothes and bedding. Instructed patient to inform transitional hall supervisor of need for bed and bedding to be cleaned , do not stay in room with other people to help prevent spread of scabies. Will provide topical antibiotics for other insect bites, does not require oral antibiotics again, previously treated with oral abx at previous visit. Apply hydrocortisone for itching, do not apply to face or skin creases. Take Benadryl for itching, side effect drowsiness, do not take prior to drinking , driving, or operating heavy machinery. Apply cool compresses to affected areas. do not scratch or itch. Consult with Dr. Bautista, agrees with assessment and treatment, will provide treatment in the ER. Consult with Department of Public [facility], and advised on treatment. Contacted [facility] and advised on need for patient isolation and monitor for symptoms in other residents. DISCHARGE: -Rx given for Bacitracin for topical use At this time pt. is stable for d/c to home. Patient resting comfortably, in no acute distress, nontoxic appearing. Will provide printed patient care instructions, and any necessary prescriptions. Care plan and follow up instructions have been discussed with the patient prior to discharge. Patient provided with list of healthcare clinics to establish primary care physician. Patient instructed to follow-up with primary care provider in 3 - 5 days. Patient questions asked and answered. ER precautions given. Patient instructed to return to ER immediately for any new or worsening of symptoms including but not limited to increasing SOB, persistent fever. - Please note that this Emergency Department Report was dictated using [employer] dumper technology software, occasionally this can lead to erroneous entry secondary to interpretation by the dictation equipment. (Darius Wright) ER Course Patient examined by me. I agree with the assessment and treatment plan. (Martin Bautista M.D.) Last Vital Signs Date Time Temp Pulse Resp B/P (MAP) Pulse Ox O2 Delivery O2 Flow Rate FiO2 09/20/17 16:25 98.4 16 114/70 96 Room Air 98.4 09/20/17 16:15 69 (Darius Wright) Disposition: HOME, SELF-CARE Condition: Stable Scripts Bacitracin/Polymyxin B Sulfate (BACITRACIN-POLYMYXIN OINTMENT) 28.35 Gm Oint...g. 1 APPLIC TP BID for 10 Days, #28 GM Prov: Darius Wright 09/20/17 Patient Instructions: Insect Bite, [id number], Scabies, Pediatric Additional Instructions: Followup with primary care provider in 3 -5 days. Request referral to dermatology. Do not scratch or itch. Apply cool compresses to affected area. Clean all clothing and bedding. Take medications as directed. Do not apply medication to face or skin creases. SE Benadryl drowsiness, do not take prior to drinking, driving, operating heavy machinery. Patient questions asked and answered. ER precautions given, patient instructed to return to ER immediately for any new or worsening of symptoms. [facility] Darius Wright Sep 20, 2017 17:07 Martin Bautista M.D. Sep 22, 2017 14:58
[2017-09-20] MEDS ORDERED: BACITRACIN-P28.35 GM TP (17:40)
[2017-09-20 17:49] VITALS: BP 125/87
== END 2017-09-20 18:00 | disposition home or self-care (01) ==
LOC: EMR 16:50
DX: B86 Scabies (principal); Z88.0 Allergy status to penicillin
CPT/HCPCS: 99282

== ENCOUNTER 2017-10-06 23:32 | Emergency (ER) | payer MEDICAID ==
[~2017-10-06] VITALS: Ht 177.8 cm; Wt 90.7 kg
[~2017-10-06 23:32] MED LIST changes: +BACITRACIN-P28.35 GM TP
[2017-10-06 23:39] VITALS: BP 130/80
[2017-10-07] MEDS ORDERED: Acetaminophen 500mg (ES) tab ORAL ONE
[2017-10-07] MEDS ORDERED: Clindamycin 900mg 50 ML IVPB ONE
[2017-10-07 00:19] LABS: APPEARANCE,URINE CLEAR; BILIRUBIN, URINE NEGATIVE (NEGATIVE); GLUCOSE, URINE (UA) NEGATIVE (NEGATIVE); KETONES,URINE NEGATIVE (NEGATIVE); LEUKOCYTE ESTERASE ,URINE NEGATIVE (NEGATIVE); NITRITE,URINE NEGATIVE (NEGATIVE); PH,URINE 5 (4.5-8.0); PROTEIN,URINE NEGATIVE (NEGATIVE); UROBILINOGEN,URINE 1 MG/DL (0.0-1.0)
[2017-10-07 00:20] LABS: HEMATOCRIT 39.9 % (42.0-52.0); HEMOGLOBIN 13.9 G/DL (14.2-18.0); MEAN CORPUSCULAR VOLUME 92 FL (80-99); PLATELET COUNT 303 K/UL (150-450); RED BLOOD COUNT 4.34 M/UL (4.70-6.10); RED CELL DISTRIBUTION WIDTH 10.4 % (11.6-14.8)
[2017-10-07 00:24] LABS: COLOR,URINE YELLOW
--- NOTE | 2017-10-07 00:34 | Emergency Room Report ---
History of Present Illness General Chief Complaint: General Complaint Source: Patient, EMS Present Illness HPI Is a 52-year-old male with no cerumen past medical history. He presents with chief complaint of fever and spider bite. He said he has bite his legs his been on and off for a month. Now with some drainage when he pushed on it. He also said he has a fever all day. Generalized body pain. He called 911 initially and told him that he had spider bite. They told him that he can get a friend or take the bus to the hospital. He been calling the ER here twice to ask us to send an ambulance for him. I spoke with him and said that if he is having fever and drainage, he need to call 911. Pain is diffuse. Body pain. 8 out of 10. Denies any drugs or alcohol use. Denies any skin picking. Allergies: Coded Allergies: PENICILLINS (Verified Allergy, Intermediate, 01/22/17) Uncoded Allergies: PENICILLIN (Allergy, Unknown, 10/06/17) Patient History Past Medical History: see triage record, old chart reviewed Past Surgical History: other Pertinent Family History: none Social History: Denies: smoking Immunizations: other Reviewed Nursing Documentation: PMH: Agreed; PSxH: Agreed Nursing Documentation-PMH Past Medical History: No History, Except For Hx Cardiac Problems: No History Of Psychiatric Problem: Yes Review of Systems Constitutional: Reports: chills, fever, malaise Eye: Denies: eye pain, blurred vision ENT: Denies: ear pain, nose congestion, throat swelling Respiratory: Denies: cough, shortness of breath Cardiovascular: Denies: chest pain, palpitations Gastrointestinal: Denies: abdominal pain, diarrhea, nausea, vomiting Musculoskeletal: Denies: back pain, joint pain Skin: Reports: rash Neurological: Denies: headache, numbness Endocrine: Denies: increased thirst, increased urine Hematologic/Lymphatic: Denies: easy bruising All Other Systems: negative except mentioned in HPI Physical Exam Vital Signs Date Time Temp Pulse Resp B/P (MAP) Pulse Ox O2 Delivery O2 Flow Rate FiO2 10/06/17 23:29 98.4 80 16 130/80 100 Room Air 98.4 vitals normal Sp02 EP Interpretation: reviewed, normal General Appearance: well appearing, no apparent distress, alert Head: normocephalic, atraumatic Eyes: bilateral eye PERRL, bilateral eye EOMI ENT: hearing grossly normal, normal pharynx Neck: full range of motion, supple, no meningismus Respiratory: chest non-tender, lungs clear, normal breath sounds Cardiovascular #1: regular rate, rhythm, no murmur Gastrointestinal: normal bowel sounds, non tender, no mass, no organomegaly, no bruit, non-distended Musculoskeletal: back normal, gait/station normal, normal range of motion Neurologic: alert, oriented x3 Psychiatric: mood/affect normal Skin: warm/dry, other - Patient with skin lesions. He has already drained them. They're central necrosis with surrounding erythema. Warm to the touch. Tender to palpation. No crepitance. Medical Decision Making Diagnostic Impression: Primary Impression: Cellulitis and abscess of lower extremity ER Course Patient with cellulitis and small abscess of the lower extremities. Most likely MRSA. No deep infection. Nothing to be I and D. No evidence of necrotizing fasciitis. Dose of IV antibiotics given here. We'll discharge home with antibiotics. Lab Results Impression labs with leukocytosis Last Vital Signs Date Time Temp Pulse Resp B/P (MAP) Pulse Ox O2 Delivery O2 Flow Rate FiO2 10/07/17 00:20 98.4 10/06/17 23:39 16 130/80 100 Room Air 10/06/17 23:29 80 Status: improved Disposition: HOME, SELF-CARE Condition: Stable Scripts Mupirocin* (MUPIROCIN*) 22 Gm Oint...g. 1 APPLIC TOPIC THREE TIMES A DAY, #22 GM Prov: ELIZA HERNANDEZ M.D. 10/07/17 Trimethoprim/Sulfamethoxazole 160/800* (BACTRIM DS TABLET*) 1 Each Tablet 1 TAB ORAL Q12H, #14 TAB 0 Refills Prov: ELIZA HERNANDEZ M.D. 10/07/17 Referrals: Ida SOMMER,REFERRING (PCP) Additional Instructions: Clean wound with hydrogen peroxide first day and apply antibiotic ointment. Follow-up with your DrDrake to 3 days for recheck. Return if symptom worsen. ELIZA HERNANDEZ M.D. Oct 07, 2017 00:34
[2017-10-07 00:37] LABS: ANION GAP 7 mmol/L (5-15); BLOOD UREA NITROGEN 18 mg/dL (7-18); CALCIUM 9.1 MG/DL (8.5-10.1); CARBON DIOXIDE 29 MMOL/L (21-32); CHLORIDE 103 MMOL/L (98-107); CREATININE 1.2 MG/DL (0.55-1.30); POTASSIUM 3.3 MMOL/L (3.5-5.1); SODIUM 138 MMOL/L (136-145)
[2017-10-07] MEDS ORDERED: Hydrogen Peroxide 473ml Bottle TOPIC ONE (00:55)
[2017-10-07] MEDS ORDERED: Bacitracin Oint UD TOPIC ONE (01:00)
[2017-10-07] MEDS ORDERED: MUPIROCIN22 GM TOPIC (01:04)
[2017-10-07] MEDS ORDERED: BACTRIM DS TAB1 EAC1 ORAL (01:04)
[2017-10-07 01:14] VITALS: BP 108/64
== END 2017-10-07 01:41 | disposition home or self-care (01) ==
LOC: EDBD 23:32 → EMR 23:46
DX: L03.119 Cellulitis of unspecified part of limb (principal); L02.419 Cutaneous abscess of limb, unspecified
CPT/HCPCS: 36415; 80048; 80307; 81001; 85007; 85025; 96365; 99284; S0077

== ENCOUNTER 2017-11-29 20:09 | Emergency (ER) | payer MEDICAID ==
[~2017-11-29] VITALS: Ht 175.3 cm; Wt 75.3 kg
[~2017-11-29 20:09] MED LIST changes: +BACTRIM DS TAB1 EAC1 ORAL; +MUPIROCIN22 GM TOPIC
[2017-11-29] MEDS ORDERED: ZITHROMAX250 MG ORAL (20:30)
--- NOTE | 2017-11-29 20:36 | Emergency Room Report ---
History of Present Illness General Chief Complaint: Earache Source: Patient Present Illness HPI 52-year-old male, no sending him past medical history presenting with right ear ache, and trouble hearing from right ear. No fever no chills. No trauma Allergies: Coded Allergies: PENICILLINS (Verified Allergy, Intermediate, 11/29/17) MILK (Verified Allergy, Unknown, 11/29/17) Uncoded Allergies: CHOCOLATE (Allergy, Unknown, 11/29/17) PENICILLIN (Allergy, Unknown, 10/06/17) Patient History Past Medical History: see triage record Past Surgical History: none Pertinent Family History: none Reviewed Nursing Documentation: PMH: Agreed; PSxH: Agreed Nursing Documentation-PMH Past Medical History: No Stated History Hx Cardiac Problems: No Review of Systems All Other Systems: negative except mentioned in HPI Physical Exam Vital Signs Date Time Temp Pulse Resp B/P (MAP) Pulse Ox O2 Delivery O2 Flow Rate FiO2 11/29/17 20:15 97.9 64 16 119/71 98 Room Air Sp02 EP Interpretation: reviewed, normal General Appearance: normal inspection, well appearing, no apparent distress, alert, GCS 15, non-toxic Head: normocephalic, atraumatic Eyes: bilateral eye normal inspection, bilateral eye PERRL, bilateral eye EOMI ENT: other - Right TM with dullness, erythema, left TM normal Neck: normal inspection, full range of motion, supple Respiratory: normal inspection, lungs clear, normal breath sounds, no respiratory distress, no retraction, no wheezing, speaking full sentences, chest symmetrical Cardiovascular #1: normal inspection, regular rate, rhythm, normal capillary refill Cardiovascular #2: 2+ radial (R), 2+ radial (L) Gastrointestinal: normal inspection, non tender, soft, no guarding Musculoskeletal: normal inspection, back normal, normal range of motion, non- tender Neurologic: normal inspection, alert, oriented x3, responsive, motor strength/ tone normal, sensory intact, normal gait, speech normal Psychiatric: normal inspection, judgement/insight normal, memory normal Skin: normal inspection, normal color, no rash, warm/dry, well hydrated, normal turgor Medical Decision Making Diagnostic Impression: Primary Impression: Otitis media ER Course 52-year-old male with 1 day of right ear pain DDX: Otitis versus externa Plan: None ER course: Patient has remained stable during ED stay. Disposition: Patient is to be discharged to home. Prescriptions given are azithromycin because he is allergic to penicillin Patient is instructed to follow up with their primary care doctor within 5 days. Please note that this Emergency Department Report was dictated using [employer]na technology software, occasionally this can lead to erroneous entry secondary to interpretation by the dictation equipment Last Vital Signs Date Time Temp Pulse Resp B/P (MAP) Pulse Ox O2 Delivery O2 Flow Rate FiO2 11/29/17 20:15 97.9 64 16 119/71 98 Room Air Disposition: HOME, SELF-CARE Condition: Stable Scripts Azithromycin* (ZITHROMAX*) 250 Mg Tablet 250 MG ORAL DAILY, #6 TAB 0 Refills Take two tables once daily for 1 day, then one tablet once daily for 4 days. Prov: Royer Kelly M.D. 11/29/17 Patient Instructions: Otitis Media, Adult Royer Kelly M.D. Nov 29, 2017 20:36
[2017-11-29 20:40] VITALS: BP 122/74
[2017-11-29 20:49] VITALS: BP 119/71
== END 2017-11-29 20:51 | disposition home or self-care (01) ==
LOC: EMR 20:46
DX: H66.91 Otitis media, unspecified, right ear (principal); Z88.0 Allergy status to penicillin; Z91.018 Allergy to other foods
CPT/HCPCS: 99282

== ENCOUNTER 2018-01-13 20:03 | Emergency (ER) | payer MEDICAID ==
[~2018-01-13] VITALS: Ht 175.3 cm; Wt 75.7 kg
[~2018-01-13 20:03] MED LIST changes: +ZITHROMAX250 MG ORAL
[2018-01-13] MEDS ORDERED: NKM (20:14)
[2018-01-13 20:15] VITALS: BP 113/68
--- NOTE | 2018-01-13 20:45 | Emergency Room Report ---
History of Present Illness General Chief Complaint: Skin Rash/Abscess Source: Patient Present Illness HPI Patient with bump L knee for many months. Not painful. No fever. No known trauma. Recent treatment for scabies and lower leg cellulitis. These are better, though the rashes continue. Less itching. No calf pain, fevers, dyspnea. Allergies: Coded Allergies: PENICILLINS (Verified Allergy, Intermediate, 11/29/17) MILK (Verified Allergy, Unknown, 11/29/17) Uncoded Allergies: CHOCOLATE (Allergy, Unknown, 11/29/17) PENICILLIN (Allergy, Unknown, 10/06/17) Patient History Past Medical History: see triage record Past Surgical History: other - lasix Social History: Denies: smoking Social History [facility] board and [facility] Nursing Documentation-[facility] Past Medical History: No Stated History Hx Cardiac Problems: No Review of Systems Constitutional: Reports: see HPI Respiratory: Reports: see HPI Cardiovascular: Denies: chest pain Gastrointestinal: Denies: nausea Musculoskeletal: Reports: see HPI Skin: Reports: see HPI Psychiatric: Reports: anxiety Neurological: Denies: numbness Physical Exam Vital Signs Date Time Temp Pulse Resp B/P (MAP) Pulse Ox O2 Delivery O2 Flow Rate FiO2 01/13/18 20:08 97.9 84 16 113/68 97 Room Air Sp02 EP Interpretation: reviewed, normal General Appearance: well appearing, no apparent distress Head: normocephalic, atraumatic Eyes: bilateral eye normal inspection, bilateral eye PERRL ENT: hearing grossly normal, normal voice, moist mucus membranes Neck: full range of motion, supple Respiratory: no respiratory distress, speaking full sentences Cardiovascular #2: 2+ radial (R) Gastrointestinal: normal inspection Musculoskeletal: digits/nails normal, gait/station normal, normal range of motion, no calf tenderness, other - see skin. No knee effusion Neurologic: alert, normal gait, grossly normal Psychiatric: mood/affect normal, anxious Skin: other - healing scabetic lesions and abrasions LE bilat. SC nodule < 0.5 cm L lateral knee, mobile no erythema Medical Decision Making Diagnostic Impression: Primary Impression: Subcutaneous nodule ER Course Patient with hard spot under skin left knee. Exam c/w subcutaneous fibrosis or other nodule. No evidence of infection or clot. Healing skin lesions not involved with knee nodule. Patient stable for outpatient observation and treatment. Patient planning on seeing social sciences lecturer tomorrow regarding living situation. Last Vital Signs Date Time Temp Pulse Resp B/P (MAP) Pulse Ox O2 Delivery O2 Flow Rate FiO2 01/13/18 21:01 98.2 84 16 115/70 97 Room Air Status: improved - with re-assurance Disposition: HOME, SELF-CARE Condition: Stable Referrals: Ida SOMMER,REFERRING (PCP) Martin Bautista MD Jan 13, 2018 20:45
[2018-01-13 21:01] VITALS: BP 115/70
== END 2018-01-13 21:00 | disposition home or self-care (01) ==
LOC: EMR 20:28
DX: R22.42 Localized swelling, mass and lump, left lower limb (principal); Z88.0 Allergy status to penicillin; Z91.011 Allergy to milk products; F41.9 Anxiety disorder, unspecified
CPT/HCPCS: 99282

== ENCOUNTER 2018-01-19 21:20 | Emergency (ER) | payer MEDICAID ==
[~2018-01-19] VITALS: Ht 175.3 cm; Wt 68.0 kg
[2018-01-19 21:49] VITALS: BP 119/73
[2018-01-19] MEDS ORDERED: Ketorolac 30mg Inj IV ONE (22:00)
--- NOTE | 2018-01-19 22:10 | Emergency Room Report ---
History of Present Illness General Chief Complaint: General Complaint Source: Patient Present Illness HPI 52-year-old female presents ED for evaluation. States he's been experiencing body aches, chills, cramping sensation, nausea and vomiting 1 day. States he ate some questionable food last night. Body aches. 5 out of 10, dull, nonradiating. Denies fever. Denies recent travel or recent antibiotic use. Denies diarrhea. No other aggravating relieving factors. Denies any other associated symptoms Allergies: Coded Allergies: PENICILLINS (Verified Allergy, Intermediate, 11/29/17) MILK (Verified Allergy, Unknown, 11/29/17) Uncoded Allergies: CHOCOLATE (Allergy, Unknown, 11/29/17) PENICILLIN (Allergy, Unknown, 10/06/17) Patient History Past Medical History: none Past Surgical History: none Pertinent Family History: none Social History: Denies: smoking, alcohol use, drug use Immunizations: UTD Reviewed Nursing Documentation: PMH: Agreed; PSxH: Agreed Nursing Documentation-PMH Past Medical History: No Stated History Hx Cardiac Problems: No Review of Systems All Other Systems: negative except mentioned in HPI Physical Exam Vital Signs Date Time Temp Pulse Resp B/P (MAP) Pulse Ox O2 Delivery O2 Flow Rate FiO2 01/19/18 21:22 97.9 74 18 119/73 98 01/19/18 21:49 Room Air Sp02 EP Interpretation: reviewed, normal General Appearance: no apparent distress, alert, GCS 15, non-toxic Head: normocephalic, atraumatic Eyes: bilateral eye normal inspection, bilateral eye PERRL ENT: hearing grossly normal, normal pharynx, no angioedema, normal voice Neck: full range of motion, supple/symm/no masses Respiratory: chest non-tender, lungs clear, normal breath sounds, speaking full sentences Cardiovascular #1: regular rate, rhythm, no edema Cardiovascular #2: 2+ carotid (R), 2+ carotid (L), 2+ radial (R), 2+ radial (L) , 2+ dorsalis pedis (R), 2+ dorsalis pedis (L) Gastrointestinal: normal bowel sounds, non tender, soft, non-distended, no guarding, no rebound Rectal: deferred Genitourinary: normal inspection, no CVA tenderness Musculoskeletal: back normal, gait/station normal, normal range of motion, non- tender Neurologic: alert, oriented x3, responsive, motor strength/tone normal, sensory intact, speech normal Psychiatric: judgement/insight normal, memory normal, mood/affect normal, no suicidal/homicidal ideation Reflexes: 3+ bicep (R), 3+ bicep (L), 3+ tricep (R), 3+ tricep (L), 3+ knee (R) , 3+ knee (L) Skin: normal color, no rash, warm/dry, well hydrated Lymphatic: no adenopathy Medical Decision Making Diagnostic Impression: Primary Impression: Acute gastroenteritis ER Course Hospital Course 52 yo M present with chills, bodyaches, nausea differential diagnosis: gastroenteritis, flu, gastritis Clinical course Patient placed on stretcher. 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 After initial history and physical I ordered labs, IV fluids, toradol Labs - no leukocytosis, electrolytes ok, flu swab negative Upon reassessment, patient states he feels better. Findings consistent with gastroenteritis . Safe for discharge close outpatient follow-up I feel this is a highly complex case requiring extensive working including EKG/ Rhythm strip, Xray/CT/US, Blood/urine lab work, repeat exams while in ED, and administration of strong opiates/narcotics for pain control, admission to hospital or close patient follow up. Diagnosis - gastroenteritis Stable and discharged to home with prescriptions for zofran, zantac. Followup with PMD. Return to ED if symptoms recur or worsen Labs Test 01/19/18 22:10 White Blood Count 9.3 K/UL (4.8-10.8) Red Blood Count 4.40 M/UL (4.70-6.10) Hemoglobin 13.3 G/DL (14.2-18.0) Hematocrit 39.5 % (42.0-52.0) Mean Corpuscular Volume 90 FL (80-99) Mean Corpuscular Hemoglobin 30.3 PG (27.0-31.0) Mean Corpuscular Hemoglobin Concent 33.8 G/DL (32.0-36.0) Red Cell Distribution Width 10.3 % (11.6-14.8) Platelet Count 232 K/UL (150-450) Mean Platelet Volume 6.8 FL (6.5-10.1) Neutrophils (%) (Auto) 73.2 % (45.0-75.0) Lymphocytes (%) (Auto) 17.2 % (20.0-45.0) Monocytes (%) (Auto) 7.3 % (1.0-10.0) Eosinophils (%) (Auto) 1.5 % (0.0-3.0) Basophils (%) (Auto) 0.8 % (0.0-2.0) Sodium Level 139 MMOL/L (136-145) Potassium Level 3.6 MMOL/L (3.5-5.1) Chloride Level 104 MMOL/L (98-107) Carbon Dioxide Level 27 MMOL/L (21-32) Anion Gap 8 mmol/L (5-15) Blood Urea Nitrogen 19 mg/dL (7-18) Creatinine 1.3 MG/DL (0.55-1.30) Estimat Glomerular Filtration Rate 58.4 mL/min (>60) Glucose Level 85 MG/DL (74-106) Calcium Level 9.0 MG/DL (8.5-10.1) Total Bilirubin 0.5 MG/DL (0.2-1.0) Aspartate Amino Transf (AST/SGOT) 20 U/L (15-37) Alanine Aminotransferase (ALT/SGPT) 30 U/L (12-78) Alkaline Phosphatase 74 U/L (46-116) Total Protein 8.1 G/DL (6.4-8.2) Albumin 3.7 G/DL (3.4-5.0) Globulin 4.4 g/dL Albumin/Globulin Ratio 0.8 (1.0-2.7) Last Vital Signs Date Time Temp Pulse Resp B/P (MAP) Pulse Ox O2 Delivery O2 Flow Rate FiO2 01/19/18 21:49 74 18 Room Air 01/19/18 21:49 97.9 119/73 98 Status: improved Disposition: HOME, SELF-CARE Condition: Stable Scripts Ranitidine Hcl* (ZANTAC*) 150 Mg Tablet 150 MG ORAL TWICE A DAY, #30 TAB Prov: David Miguel MD 01/19/18 Ondansetron Odt* (ZOFRAN ODT*) 4 Mg Tab.rapdis 4 MG BC EVERY 6 HOURS PRN for Nausea & Vomiting, #10 TAB 0 Refills Prov: David Miguel MD 01/19/18 Referrals: TERENCE STARKEY (PCP) David Miguel MD Jan 19, 2018 22:10
[2018-01-19 22:40] LABS: BASOPHILS % (AUTO) 0.8 % (0.0-2.0); EOSINOPHILS % (AUTO) 1.5 % (0.0-3.0); HEMATOCRIT 39.5 % (42.0-52.0); HEMOGLOBIN 13.3 G/DL (14.2-18.0); LYMPHOCYTES % (AUTO) 17.2 % (20.0-45.0); MEAN CORPUSCULAR VOLUME 90 FL (80-99); MONOCYTES % (AUTO) 7.3 % (1.0-10.0); NEUTROPHILS % (AUTO) 73.2 % (45.0-75.0); PLATELET COUNT 232 K/UL (150-450); RED CELL DISTRIBUTION WIDTH 10.3 % (11.6-14.8); WHITE BLOOD COUNT 9.3 K/UL (4.8-10.8)
[2018-01-19 22:49] LABS: ANION GAP 8 mmol/L (5-15); BLOOD UREA NITROGEN 19 mg/dL (7-18); CARBON DIOXIDE 27 MMOL/L (21-32); CHLORIDE 104 MMOL/L (98-107); CREATININE 1.3 MG/DL (0.55-1.30); POTASSIUM 3.6 MMOL/L (3.5-5.1); SODIUM 139 MMOL/L (136-145)
[2018-01-19 22:54] LABS: ALANINE AMINOTRANSFERASE 30 U/L (12-78); ALBUMIN 3.7 G/DL (3.4-5.0); ALBUMIN/GLOBULIN RATIO 0.8 (1.0-2.7); ALKALINE PHOSPHATASE 74 U/L (46-116); ASPARTATE AMINO TRANSFERASE 20 U/L (15-37); BILIRUBIN,TOTAL 0.5 MG/DL (0.2-1.0)
[2018-01-19] MEDS ORDERED: RANITIDINE HCL150 MG ORAL (23:24)
[2018-01-19] MEDS ORDERED: ONDANSETRON ODT4 MG BC (23:24)
[2018-01-19 23:45] VITALS: BP 124/75
== END 2018-01-19 23:45 | disposition home or self-care (01) ==
LOC: EMR 21:45
DX: K52.9 Noninfective gastroenteritis and colitis, unspecified (principal); Z88.0 Allergy status to penicillin; Z91.011 Allergy to milk products; Z91.018 Allergy to other foods
CPT/HCPCS: 36415; 80053; 85025; 86710; 96361; 96374; 99284; J1885

== ENCOUNTER 2018-02-15 21:54 | Emergency (ER) | payer MEDICAID ==
[~2018-02-15] VITALS: Ht 175.3 cm; Wt 74.8 kg
[~2018-02-15 21:54] MED LIST changes: +ONDANSETRON ODT4 MG BC; +RANITIDINE HCL150 MG ORAL
[2018-02-15 22:15] VITALS: BP 122/81
[2018-02-15] MEDS ORDERED: BACTRIM DS TAB1 EAC1 ORAL (22:21)
[2018-02-15] MEDS ORDERED: FLONASE ALLERG9.9 ML NS (22:21)
--- NOTE | 2018-02-15 22:21 | Emergency Room Report ---
History of Present Illness General Chief Complaint: Skin Rash/Abscess Source: Patient, Medical Record Present Illness HPI This is a 52-year-old male with a history of staph infection the past. He presents with chief complaint of recurring runny nose and congestion. Also with bumps on his body. The cold been ongoing for about a week. The bumps notices it in the last few days. No pain. Not itching. No fever chills but no nausea no vomiting. Denies any other complaint. Allergies: Coded Allergies: PENICILLINS (Verified Allergy, Intermediate, 11/29/17) MILK (Verified Allergy, Unknown, 11/29/17) Uncoded Allergies: CHOCOLATE (Allergy, Unknown, 11/29/17) PENICILLIN (Allergy, Unknown, 10/06/17) Patient History Past Medical History: see triage record, old chart reviewed Past Surgical History: other Pertinent Family History: none Social History: Denies: smoking Immunizations: other Reviewed Nursing Documentation: PMH: Agreed; PSxH: Agreed Nursing Documentation-PMH Past Medical History: No History, Except For Hx Cardiac Problems: No History Of Psychiatric Problem: Yes - Major depression Review of Systems Eye: Denies: eye pain, blurred vision ENT: Reports: nose congestion; Denies: ear pain, throat swelling Respiratory: Denies: cough, shortness of breath Cardiovascular: Denies: chest pain, palpitations Gastrointestinal: Denies: abdominal pain, diarrhea, nausea, vomiting Musculoskeletal: Denies: back pain, joint pain Skin: Reports: rash Neurological: Denies: headache, numbness Endocrine: Denies: increased thirst, increased urine Hematologic/Lymphatic: Denies: easy bruising All Other Systems: negative except mentioned in HPI Physical Exam Vital Signs Date Time Temp Pulse Resp B/P (MAP) Pulse Ox O2 Delivery O2 Flow Rate FiO2 02/15/18 21:58 98.2 78 19 120/80 99 Room Air vitals normal Sp02 EP Interpretation: reviewed, normal General Appearance: well appearing, no apparent distress, alert Head: normocephalic, atraumatic Eyes: bilateral eye PERRL, bilateral eye EOMI ENT: hearing grossly normal, normal pharynx Neck: full range of motion, supple, no meningismus Respiratory: chest non-tender, lungs clear, normal breath sounds Cardiovascular #1: regular rate, rhythm, no murmur Gastrointestinal: normal bowel sounds, non tender, no mass, no organomegaly, no bruit, non-distended Musculoskeletal: back normal, gait/station normal, normal range of motion Neurologic: alert, oriented x3 Psychiatric: mood/affect normal Skin: warm/dry, other - Diffuse raised Prickly rash on body. Medical Decision Making Diagnostic Impression: Primary Impression: Rhinitis Qualified Codes: J31.0 - Chronic rhinitis Additional Impression: Dermatitis ER Course Patient with a chronic rhinitis. This may be a URI type is symptom in the rash is a viral exanthem. Because of history of staph infection, will put him on antibiotics. No evidence of any abscess. No evidence of a necrotizing fasciitis. Last Vital Signs Date Time Temp Pulse Resp B/P (MAP) Pulse Ox O2 Delivery O2 Flow Rate FiO2 02/15/18 21:58 98.2 78 19 120/80 99 Room Air Status: unchanged Disposition: HOME, SELF-CARE Condition: Stable Scripts Trimethoprim/Sulfamethoxazole 160/800* (BACTRIM DS TABLET*) 1 Each Tablet 1 TAB ORAL Q12H, #14 TAB 0 Refills Prov: Azeem Otero MD 02/15/18 Fluticasone Propionate (Flonase Allergy Relief) 9.9 Ml [place].susp 9.9 ML NS DAILY, #1 UNIT Prov: Azeem Otero MD 02/15/18 Patient Instructions: Rash Additional Instructions: Follow-up with your doctor in 7 days. Return if worse. Azeem Otero MD Feb 15, 2018 22:21
[2018-02-15 22:27] VITALS: BP 123/81
== END 2018-02-15 22:27 | disposition home or self-care (01) ==
LOC: EMR 22:15
DX: J31.0 Chronic rhinitis (principal); L30.9 Dermatitis, unspecified; F32.9 Major depressive disorder, single episode, unspecified; Z88.0 Allergy status to penicillin; Z91.018 Allergy to other foods
CPT/HCPCS: 99282